=== PATIENT | male | born 1945 | race Caucasian/White ===

== ENCOUNTER 2018-07-23 15:48 | Emergency (ER) | payer MEDICARE ==
[2018-07-23] MEDS ORDERED: Ibuprofen TAB* 600 MG PO ONE (16:07)
[2018-07-23 16:08] VITALS: BP 154/69
--- NOTE | 2018-07-23 16:30 | UC ---
Shortness of Breath HPI - HPI Summary HPI Summary: 72-year-old male comes in complaining of shortness of breath and confusion. The patient is confused. provides most of the history. She tells us that he's been sick for greater than a week and short of breath been having a hard time breathing he's been confused and has generalized weakness. Review of any chest pain. He is a smoker and he has COPD just started using his COPD medicines last night. - History of Current Complaint Chief Complaint: UCRespiratory Stated Complaint: SOB ,ACHY Time Seen by Provider: 07/23/18 15:56 - Allergy/Home Medications Allergies/Adverse Reactions: Allergies Allergy/AdvReac Type Severity Reaction Status Date / Time bee sting Allergy Intermediate Swelling Uncoded 07/23/18 15:53 pine needles Allergy Mild Rash Uncoded 07/23/18 15:53 Home Medications: Home Medications Albuterol/Ipratropium RESP(NF) [Combivent Respimat(NF)] 1 aer IN 07/23/18 [ History] PMH/Surg Hx/FS Hx/Imm Hx Respiratory History: COPD - Surgical History Surgical History: Yes Surgery Procedure, Year, and Place: aortic aneurysm stent 2012; hernia both sides; tonsillectomy - Family History Known Family History: Positive: Unknown - Social History Alcohol Use: Rare Substance Use Type: None Smoking Status (MU): Heavy Every Day Tobacco Smoker Amount Used/How Often: 1/2 PPD Household Exposure Type: Cigarettes Review of Systems Constitutional: Fever, Chills, Fatigue Skin: Negative Eyes: Negative ENT: Nasal Discharge, Sinus Congestion Respiratory: Shortness Of Breath, Cough Cardiovascular: Other - No complaint of chest pain Gastrointestinal: Negative Motor: Weakness Neurovascular: Negative Musculoskeletal: Negative Neurological: Weakness, Other - Confusion Psychological: Negative Is Patient Immunocompromised?: No All Other Systems Reviewed And Are Negative: Yes Physical Exam Triage Information Reviewed: Yes Completion Of Physical Exam Limited Due To: Altered Mental Status Appearance: Ill-Appearing Vital Signs: Initial Vital Signs Temp 103.2 F 07/23/18 15:53 Pulse 123 07/23/18 15:53 Resp 28 07/23/18 15:53 BP 154/69 07/23/18 15:53 Pulse Ox 84 07/23/18 15:53 Vital Signs Reviewed: Yes Eye Exam: Normal Eyes: Positive: Conjunctiva Clear ENT: Positive: Nasal congestion, Nasal drainage Respiratory: Positive: Respiratory distress, Rhonchi Cardiovascular: Positive: Tachycardia Musculoskeletal: Positive: Other: - Generalized weakness Neurological: Positive: Other: - Confused but talking Psychological: Positive: Abnormal Response To Family Skin Exam: Normal Diagnostics - EKG EKG Comments: AT 15:51 Cardiac Rate: Tachycardia Cardiac Rhythm: Sinus: Normal Ectopy: None ST Segment: Normal Shortness of Breath Dx - Course Course Of Treatment: [facility] CALLED AND PATIENT TRANSPORTED TO [facility] - Differential Dx/Diagnosis Provider Diagnoses: FEVER. HYPOXIA. CONFUSION Discharge - Sign-Out/Discharge Documenting (check all that apply): Patient Departure All imaging exams completed and their final reports reviewed: No Studies - Discharge Plan Condition: Fair Disposition: TRANS HIGHER LVL OF CARE FAC Referrals: Mary Anne Massey MD [Primary Care Provider] - - Billing Disposition and Condition Condition: FAIR Disposition: Trans Higher Lvl of Care Fac
== END 2018-07-23 16:20 | disposition short-term general hospital (02) ==
LOC: UCCORT 15:48
DX: R50.9 Fever, unspecified (principal); R09.02 Hypoxemia; R41.0 Disorientation, unspecified; J44.9 Chronic obstructive pulmonary disease, unspecified; F17.210 Nicotine dependence, cigarettes, uncomplicated
CPT/HCPCS: 93005; 99213; A9270-GY; G0463